=== PATIENT | male | born 1950 | race Caucasian/White ===

== ENCOUNTER 2016-05-15 14:22 | Emergency (ER) | payer OTHER ==
[~2016-05-15] VITALS: Wt 64.0 kg
[~2016-05-15 14:22] MED LIST: ACIT10CA2 PO; ADV50050; ALLO300T2 PO; AMLO1CAP4 PO; APR50 PO; ATOR20TA38 PO; CALC-634 PO; CLB05O30 TOP; COLC0.6T6 PO; FLUT1AER INHALATION; FLUT1DIS21; FURO20TA3 PO; GLIM2TAB PO; HYD25 PO; HYDR-3011 PO; IND50 PO; IPRA4AER INHALATION; LABE200T25 PO; LATA2.5D9; MED4DP PO; METF500T4; MUPI22OI29 TOP; NIFE30TA8 PO; PRED20TA; TAMS0.4C2 PO; THE300; TRIA60LO6 TOP
[2016-05-15] MEDS ORDERED: KETOROLAC 30 MG INJ IM STA (15:37)
[2016-05-15] MEDS ORDERED: PRED20TA PO (15:45)
--- NOTE | 2016-05-15 15:50 | ERD ---
ER Documentation Chief Complaint Date/Time DATE: 05/15/16 TIME: 15:48 Chief Complaint COUGH AND WHEEZING FOR THEPAST 24 HRS. NO RELIEF WITH MED NEBS/. HPI This 66-year-old male presents with cough and wheezing for last day. He has a history of COPD and is requesting a Solu-Medrol injection. Is using his nebulizer at home. Denies productive cough, fevers, chest pain. He has an additional complaint of some left foot pain with a history of gout. He feels that it similar to his previous gout attacks admits he feels that is likely due to not adhering to a diet recently. Denies any history of trauma, weakness, restricted range of motion. ROS All systems reviewed and are negative except as per history of present illness. Medications Home Meds Active Scripts Prednisone* (Prednisone*) 20 Mg Tab, 40 MG PO DAILY for 5 Days, TAB Prov:DOREEN ACOSTA MD 05/15/16 Clobetasol Priopionate* (Temovate*) 0.05%-30 GM Oint Tube, 1 APPLIC TOP BID for 7 Days, TUB Prov:CANDELARIOMARGOTH LO 08/08/15 Methylprednisolone* (Medrol* DOSE PACK) 4 Mg/Dose-Pack Tab.ds.pk, 4 MG PO . DIRECTED for 6 Days, PACKET Prov:MARGOTH PALOMINO 08/08/15 Mupirocin (BACTROBAN 2% OINT) 1 Applic Oint, 1 APPLIC TOP BID for 7 Days, TUB Prov:MARGOTH PALOMINO 08/08/15 Acitretin (Acitretin) 10 Mg Capsule, 10 MG PO DAILY, #7 CAP Prov:INDU SANDOVAL MD 07/30/15 Triamcinolone Acetonide* (Kenalog*) 0.1%-60 Ml Lotion, 1 APPLIC TOP BID, #1 EACH 1 Refill Prov:INDU SANDOVAL MD 07/30/15 Hydroxyzine Hcl* (Hydroxyzine Hcl*) 25 Mg Tablet, 25 MG PO Q8H Y for ITCHING, # 30 TAB Prov:INDU SANDOVAL MD 07/30/15 Methylprednisolone* (Medrol* DOSE PACK) 4 Mg/Dose-Pack Tab.ds.pk, 4 MG PO . DIRECTED, #1 PACKET Prov:INDU SANDOVAL MD 07/30/15 Indomethacin* (Indocin*) 50 Mg Cap, 50 MG PO TID for 2 Days, CAP Prov:SABINE MEIER NP 09/21/14 Colchicine* (Colcrys*) 0.6 Mg Tablet, 0.6 MG PO as directed, #3 TAB 2 Tab PO x1, then 1 tab 1 hr later Prov:SABINE MEIER NP 09/21/14 Reported Medications Calcium Carbonate/Vitamin D3 (OYSTERCAL-D 500 MG-400 UNIT TB) 1 Each Tablet, 1 EACH PO BID, TAB 06/15/15 Fluticasone-Vilanterol (Breo Ellipta Inhaler) 100-25 Mcg/Actuation Aer.pow.ba, 1 PUFF INHALATION BID, #1 INHALER 06/15/15 Albuterol/Ipratropium* (Combivent Respimat*) 20-100 Mcg/Inh - 4 Gm Aer.w.adap, 1 PUFF INHALATION DAILY, #1 INHALER 06/15/15 Glimepiride* (Glimepiride*) 2 Mg Tablet, 2 MG PO WITH BREAKFAST, TAB 09/21/14 Tamsulosin Hcl* (Tamsulosin Hcl*) 0.4 Mg Cap.er.24h, 0.4 MG PO HS, CAP 09/21/14 Amlodipine-Benazepril (Lotrel) 2.5-10 Mg Capsule, 1 CAP PO DAILY, CAP 09/21/14 Atorvastatin Calcium* (Atorvastatin Calcium*) 20 Mg Tablet, 20 MG PO HS, TAB 09/21/14 Hydrochlorothiazide* (Hydrochlorothiazide*) 25 Mg Tab, 50 MG PO DAILY, TAB 09/21/14 Hydralazine Hcl* (Hydralazine Hcl*) 50 Mg Tab, 100 MG PO DAILY, TAB 09/21/14 Furosemide* (Furosemide*) 20 Mg Tablet, 20 MG PO DAILY, TAB 09/21/14 Labetalol Hcl* (Labetalol Hcl*) 200 Mg Tablet, 200 MG PO DAILY 12/29/12 Nifedipine (Nifedical XL*) 30 Mg/Bottle Tab.osm.24, 30 MG PO DAILY 12/29/12 Fluticasone/Salmeterol (Advair 500-50 Diskus) 1 Disk W/Dev Disk.w.dev 09/26/10 Metformin* (Glucophage*) 500 Mg Tab, 1000 BID WITH MEALS 03/25/10 Allopurinol* (Allopurinol*) 300 Mg Tablet, 300 MG PO DAILY 03/25/10 Latanoprost (Xalatan) 2.5 Ml Drops 03/25/10 Prednisone (Prednisone) 20 Mg Tablet 03/25/10 Theophylline* (Dmitry-Dur*) 300 Mg Tabsr 03/25/10 Salmeterol Xinaf/Fluticasone* (Advair 500/50 Diskus*) 1 Inh Inha 03/25/10 Allergies Allergies: Coded Allergies: No Known Drug Allergy (Verified Allergy, Unknown, 08/08/15) PMhx/Soc History of Surgery: Yes (mass removal on neck , stent ) Anesthesia Reaction: No Hx Neurological Disorder: No Hx Respiratory Disorders: Yes (COPD, ASTHMA) Hx Cardiac Disorders: No (HTN, HIGH CHOLESTEROL) Hx Psychiatric Problems: No Hx Miscellaneous Medical Probl: Yes (psoriasis, DM, SPINAL STENOSIS, GOUT) Hx Alcohol Use: No Hx Substance Use: No Hx Tobacco Use: No Smoking Status: Never smoker Physical Exam Vitals Vital Signs Date Time Temp Pulse Resp B/P Pulse Ox O2 Delivery O2 Flow Rate FiO2 05/15/16 14:49 98.9 88 24 170/85 95 Physical Exam Const: [] Alert, [id number] per Head: Atraumatic Eyes: Normal Conjunctiva ENT: Normal External Ears, Nose and Mouth. Neck: Full range of motion..~ No meningismus. Resp: Clear to auscultation bilaterally. No appreciable rales and slight wheezy cough but no wheeze at rest and no retractions. Cardio: Regular rate and rhythm, no murmurs Abd: Soft, non tender, non distended. Normal bowel sounds Skin: No petechiae or rashes Back: No midline or flank tenderness Ext: No cyanosis, or edema. Some tenderness and mild swelling around the fifth metacarpal phalangeal joint on the left foot. There is slight amount of irritation but no warmth, streaking no deformities. Neur: Awake and alert Psych: Normal Mood and Affect Results 24 hrs Current Medications Medications (Trade) Dose Ordered Sig/Faith Route PRN Reason Start Time Stop Time Status Last Admin Dose Admin Methylprednisolone Sodium Succinate (Solu-Medrol) 125 mg ONCE ONCE IM 05/15/16 16:00 05/15/16 16:01 05/15/16 15:47 Ketorolac Tromethamine (Toradol) 30 mg ONCE STAT IM 05/15/16 15:37 05/15/16 15:39 DC 05/15/16 15:47 Procedures/MDM Patient is requesting Solu-Medrol and Toradol injection. Patient appears to have good knowledge of his medical conditions. Signs are not consistent with pneumonia, respiratory distress, acute coronary syndrome, PE, cellulitis and symptoms and signs do not suggest fracture of his foot. We treated short course of prednisone instructions to follow-up his primary doctor. He should continue the nebulizer treatments at home and return to the ER for any worsening symptoms. The patient was stable with no new complaints during the ER course. Clinically, there is no current evidence to suggest meningitis, sepsis, acute abdomen, pneumonia, acute coronary syndrome, pulmonary embolism, or any other emergent condition appearing to require further evaluation or hospitalization. The patient should certainly return for any new or worsening symptoms per the aftercare instructions. They should otherwise follow-up with her primary care doctor for reevaluation this week. Departure Diagnosis: Primary Impression: Hypertension Hypertension type: essential hypertension Qualified Code: I10 - Essential hypertension Additional Impressions: Gout Gout site: foot Gout etiology: unspecified cause Laterality: left Chronicity: acute Qualified Code: M10.9 - Acute gout of left foot, unspecified cause COPD exacerbation Condition: Stable Patient Instructions: Treating Gout Attacks, High Blood Pressure (Hypertension) , Copd Flare, Gouty Arthritis Additional Instructions: Recheck for new or worsening symptoms with primary care doctor. DOREEN ACOSTA MD May 15, 2016 15:50
[2016-05-15 15:59] VITALS: BP 159/80; PULSE 89; RESP 18; TEMP 98.9
[2016-05-15] MEDS ORDERED: METHYLPREDNISOLONE 125 MG INJ IM ONE (16:00)
== END 2016-05-15 16:15 | disposition home or self-care (01) ==
LOC: FTE 14:22
DX: I10 Essential (primary) hypertension (principal); M10.9 Gout, unspecified; E11.9 Type 2 diabetes mellitus without complications; J44.1 Chronic obstructive pulmonary disease with (acute) exacerbation; Z79.84 Long term (current) use of oral hypoglycemic drugs
CPT/HCPCS: 96372; J1885; J2930; Z7502

== ENCOUNTER 2017-06-29 14:16 | Emergency (ER) | END 2017-06-29 16:05 | disposition left against medical advice (07) ==